=== PATIENT | male | born 1985 | race Caucasian/White ===

== ENCOUNTER 2022-04-15 15:34 | Emergency (ER) | payer OTHER ==
[2022-04-15] MEDS ORDERED: cefTRIAXone 1 GM, Lidocaine 1% 2.1 ML IM ONE ×2 (16:06)
== END 2022-04-15 16:28 | disposition home or self-care (01) ==
LOC: JD.ED 15:34
DX: K04.7 Periapical abscess without sinus (principal); K02.9 Dental caries, unspecified; F17.210 Nicotine dependence, cigarettes, uncomplicated; Z88.0 Allergy status to penicillin; Z91.013 Allergy to seafood
CPT/HCPCS: 96372; 99282; J0696